=== PATIENT | female | born 1980 | race Caucasian/White ===

== ENCOUNTER 2016-08-05 15:39 | Observation (INO) | payer OTHER ==
--- NOTE | 2016-08-05 20:05 | PDGENHP ---
History and Physical - Chief Complaint Acute RLQ abdominal pain - History of Present Illness 36 yo woman with increasing RLQ pain over the past 48 hrs. Seen in outlying urgent care with CT scan demonstrating acute appendicular inflammation. Normal WBC. Mildly hypertensive. 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 History Information - Allergies/Home Medication List Allergies/Adverse Reactions: latex Allergy (Mild, Verified 10/25/13 18:27) Itching strawberry [[place]] Allergy (Verified 10/25/13 18:29) Hives Home Medications: Prenatabs FA Tablet 1 tab 10/25/13 [Last Taken 11/07/13 08:00] I have personally reviewed and updated: family history, medical history, social history, surgical history - Past Medical History Additional medical history: Anemia microcytic. htn. BMI 30-35. Left ovarian tumor - Surgical History Additional surgical history: left oopherectomy - Family History Positive for: myocardial infarction (MGM age 60) - Social History Smoking Status: Never smoked Review of Systems ROS: 10pt was reviewed & negative except for what was stated in HPI & below Constitutional: Reports: malaise. Denies: chills, fever Cardiac: Reports: no symptoms Respiratory: Reports: no symptoms Gastrointestinal: Reports: abdominal pain Genitourinary: Reports: no symptoms Muscolosketal: Reports: no symptoms Skin: Reports: no symptoms Hematologic/Lymphatic: Reports: anemia Physical Exam HR 65 BP 130/85 RR 16 Constitutional: no apparent distress, obese Eyes: anicteric sclera, EOMI Ears, Nose, Mouth, Throat: moist mucous membranes, hearing normal Cardiovascular: regular rate and rhythym, no murmur, rub, or gallop Peripheral Pulses: 2+: carotid (R), carotid (L), dorsalis-pedis (R), dorsalis- pedis (L) Respiratory: no respiratory distress, clear to auscultation Gastrointestinal: no palpable masses, tenderness (RLQ with rebound and guarding) Genitourinary: no bladder fullness Skin: warm Musculoskeletal: full muscle strength, normal joint ROM Neurologic: AAOx3, CN II-XII Intact Psychiatric: interacting appropriately Lab Data & Imaging Review WBC 5.6 H/H Plt 319 Cr 1.0 Imaging Review: CT scan from outlying urgent care personally reviewed agree with finding of enarged tubular structure RLQ without signs of abscess - consistent with acute appendicitis Assessment & Plan Assessment: Acute Appendicitis Chronic microcytic anemia Hypertension BMI 30-35 Plan: Laparoscopic appendectomy - risks benefits and alternatives outlined with verbal confirmation of understanding. All questions of patient and spouse addressed. Fluid challenge for dehydration Unasyn 3 gm IV x1 Expect overnight stay with d/c tomorrow Advance diet and activity tonight post operatively to regular
[2016-08-05] MEDS ORDERED: NS 1,000 ML IV ONE (20:14)
[2016-08-05] MEDS ORDERED: LR 1,000 ML IV SCH (20:30)
[2016-08-05] MEDS ORDERED: AMPICILLIN/SULBACTAM 3 GM in NS 100 ML IV ONE (20:30)
[2016-08-05] MEDS ORDERED: fentaNYL 100 MCG/2 ML INJ ONE ×2 (21:58)
[2016-08-05] MEDS ORDERED: PROPOFOL/EMULSION 500 MG/50 ML BOTTLE IV ONE (21:58)
[2016-08-05] MEDS ORDERED: BUPIVACAINE 0.5% 30 ML SDV ONE (22:06)
[2016-08-05] MEDS ORDERED: SKIN ADHESIVE (DERMABOND) 1 EACH TP ONE (22:06)
[2016-08-05] MEDS ORDERED: LIDOCAINE 1% 30 ML SDV ONE (22:09)
[2016-08-05] MEDS ORDERED: KETOROLAC 30 MG/1 ML SDV ONE (22:26)
[2016-08-05] MEDS ORDERED: ROCURONIUM 50 MG/5 ML VIAL ONE (22:26)
[2016-08-05] MEDS ORDERED: DEXAMETHASONE 4 MG/ML VIAL ONE (22:26)
[2016-08-05] MEDS ORDERED: ONDANSETRON 4 MG/2 ML VIAL ONE (22:26)
[2016-08-05] MEDS ORDERED: LIDOCAINE 2% 5 ML SDV ONE (22:26)
[2016-08-05] MEDS ORDERED: GLYCOPYRROLATE 0.2 MG/1 ML VIAL ONE (22:35)
[2016-08-05] MEDS ORDERED: NEOSTIGMINE METHYLSULFATE 5 MG/5 ML SYR ONE (22:35)
[2016-08-05] MEDS ORDERED: PROMETHAZINE HCL 25 MG/ML INJ ONE (23:13)
--- NOTE | 2016-08-05 23:26 | POSTOPPROG ---
Post Op Note Date of Operation: 08/05/16 Surgeon: Ap Sotomayor Motorcycle Sales Associate: none Anesthesia: GET(General Endotracheal) Pre-op Diagnosis: Appendicitis Post-op Diagnosis: same Indication: acute appendicitis Procedure: Lap Appy Findings: acute inflammation of the appendix Inf/Abcess present in the surg proc area at time of surgery?: Yes Depth: Organ Space EBL: Minimal Complications: none Specimen(s): appendix to permanent pathology
[2016-08-06 00:05] VITALS: O2SAT 97
[2016-08-06 02:16] VITALS: RESP 16
--- NOTE | 2016-08-06 05:16 | GOP ---
[f rep st] OPERATIVE REPORT DATE OF OPERATION: SURGEON: Ap Sotomayor MD BROADCAST SUPERVISOR: None. ANESTHESIA: General endotracheal anesthesia. PREOPERATIVE DIAGNOSIS: This is a 36-year-old woman with clinical and imaging signs of acute appendi citis. POSTOPERATIVE DIAGNOSIS: Appendicitis. PROCEDURE PERFORMED: Laparoscopic appendectomy. FINDINGS: SPECIMENS: Appendix to permanent pathology. ESTIMATED BLOOD LOSS: 10 mL. DESCRIPTION OF PROCEDURE: The patient was brought to the operating room. After induction of endotra cheal anesthesia, supine position, her abdomen was prepped with chlorhexidine, draped sterilely. The time-out procedure was then performed according to the institutional standards. The local anestheti c is placed through the trocar sites. Trocar placement was done supraumbilically, and the abdomen wa s insufflated to 15 torr with carbon dioxide. A previous area in the lower midline where she had had surgery was completely healed. Trocars were placed under direct visualization through the midline s car for appendectomy. Right-sided tilt facilitated dissection, and the appendix is dissected clear d own to the base of the appendix and the cecum using bipolar energy device ligature. A 45 mm stapler was used to divide the appendix flush with the base of the cecum. The appendix was placed into a bag and taken out through the umbilical incision. The open trocar site was closed at the fascial level using 0 Vicryl on a suture passer, and all 3 incisions were reapproximated using 4-0 Monocryl suture. Dermabond is applied. The patient awakened, extubated, and taken to the recovery room in stable co ndition. No immediate complications. FLUIDS GIVEN: 500 cc crystalloid. /[id number]/MODL
[2016-08-06] MEDS ORDERED: ONDANSETRON 4 MG/2 ML VIAL IVP PRN (07:12)
[2016-08-06] MEDS ORDERED: ACETAMINOPHEN 325 MG TAB PO PRN (07:12)
[2016-08-06] MEDS ORDERED: HYDROCODONE/APAP 5/325 TAB PO PRN (07:12)
[2016-08-06 07:33] VITALS: BP 120/81; PULSE 65; TEMP 97.9
[2016-08-06] MEDS ORDERED: KETOROLAC 15 MG/1 ML SDV IVP SCH (12:00)
[2016-08-06] MEDS ORDERED: IBUPROFEN 600 MG TAB PO SCH (14:00)
== END 2016-08-06 09:15 | disposition home or self-care (01) ==
LOC: FOB 19:12
PROVIDERS: ADMIT Surgery; ATTEND Surgery
PROC: 0DTJ4ZZ Resection of Appendix, Percutaneous Endoscopic Approach (ICD-10-PCS; principal; 2016-08-05 21:58)
DX: K35.80 Unspecified acute appendicitis (principal); D50.9 Iron deficiency anemia, unspecified; I10 Essential (primary) hypertension; E66.9 Obesity, unspecified; Z68.30 Body mass index [BMI] 30.0-30.9, adult; Z85.43 Personal history of malignant neoplasm of ovary
CPT/HCPCS: 44970; G0378; J0295; J1100; J1885; J2405; J2550; J2704; J2710; J3010